=== PATIENT | female | born 1940 | race African-American/Black ===

== ENCOUNTER → 2018-11-17 | Outpatient (CLI) | payer BC, OTHER ==
--- NOTE | 2018-11-17 14:06 | 2DMMODE ---
[facility] [place] [address] 2 D/M-MODE ECHOCARDIOGRAM Name: SULEMAN SULLIVAN Room #: REG [facility]#: [id number] ������������� Admission: 11/17/18 ������������� Attend Phys: Bassem Hendrickson Discharge: ��� ������������� ��� Date of : 40 Date of Service: 11/17/18 1406 �� Report #: [id number] �������� ��������������������������������������������[id number] THIS REPORT FOR: //name// APPROVED REPORT Study performed: 11/17/2018 13:18:44 EXAM: Comprehensive 2D, Doppler, and color-flow Echocardiogram Patient Location: Out-Patient Status: routine BSA: 1.82 HR: 51 bpm BP: 180/90 mmHg Rhythm: IRREGULAR/SINUS Other Information Study Quality: Adequate Indications Syncope 2D Dimensions RVDd: 35.31 mm IVSd: 11.66 (7-11mm) LVOT Diam: 20.17 (18-24mm) LVDd: 39.28 mm PWd: 12.24 (7-11mm) LVDs: 27.09 (25-40mm) Aortic Root: 32.14 mm Volumes Left Atrial Volume (Systole) Single Plane 4CH: 63.32 mL Single Plane 2CH: 54.20 mL LA ESV Index: 34.00 mL/m2 Aortic Valve AoV Peak Renny.: 1.65 m/s AO Peak Gr.: 10.84 mmHg LVOT Max P.22 mmHg LVOT Max V: 1.03 m/s KACY Vmax: 1.99 cm2 Mitral Valve E/A Ratio: 0.9 MV Decel. Time: 280.32 ms MV E Max Renny.: 1.11 m/s [facility] [address] [place] [address] 2 D/M-MODE ECHOCARDIOGRAM Name: SULEMAN SULLIVAN [id number] ������������� Admission: 11/17/18 ������������� Attend Phys: Bassem Hendrickson Discharge: ��� ������������� ��� Date of : 40 Date of Service: 11/17/18 1406 �� Report #: [id number] �������� ��������������������������������������������[id number] MV A Renny.: 1.23 m/s MV PHT: 81.29 ms IVRT: 92.27 ms Pulmonary Valve PV Peak Renny.: 0.78 m/s PV Peak Gr.: 2.43 mmHg Pulmonary Vein P Vein S: 0.49 m/s P Vein A: 0.30 m/s P Vein D: 0.29 m/s P Vein A Dur.: 156.9 msec P Vein S/D Ratio: 1.69 Tricuspid Valve TR Peak Renny.: 2.75 m/s RAP Estimate: 5.00 mmHg TR Peak Gr.: 30.21 mmHg PA Pressure: 35.00 mmHg Left Ventricle The left ventricle is normal size. There is normal LV segmental wall motion. Mild concentric left ventricular hypertrophy. Left ventricular systolic function is normal. LVEF is 60-65%. Mild diastolic dysfunction is present (impaired relaxation pattern). Right Ventricle The right ventricle is normal size. The right ventricular systolic function is normal. Atria Left atrium is at the upper limits of normal. The right atrium size is normal. Aortic Valve Aortic valve leaflets are mildly thickened. Mild aortic regurgitation. There is no aortic valvular stenosis. Mitral Valve The mitral valve is normal in structure. Trace to mild mitral regurgitation. Tricuspid Valve The tricuspid valve is normal in structure. Moderate tricuspid regurgitation. Estimated PAP is 35-40mmHg. Pulmonic Valve The pulmonary valve is normal in structure. Trace pulmonic [facility] [address] [place] [address] 2 D/M-MODE ECHOCARDIOGRAM Name: SULEMAN SULLIVAN Room #: REG [facility].#: [id number] ������������� Admission: 11/17/18 ������������� Attend Phys: Bassem Hendrickson Discharge: ��� ������������� ��� Date of : 40 Date of Service: 11/17/18 1406 �� Report #: [id number] �������� ��������������������������������������������[id number] regurgitation. Great Vessels The aortic root is normal in size. Ascending aorta is not well visualized. IVC is normal in size and collapses >50% with inspiration. Pericardium There is no pericardial effusion. <Conclusion> The left ventricle is normal size. LVEF is 60-65%. Left atrium is at the upper limits of normal. Aortic valve leaflets are mildly thickened. Mild aortic regurgitation. The mitral valve is normal in structure. Trace to mild mitral regurgitation. The tricuspid valve is normal in structure. Moderate tricuspid regurgitation. Estimated PAP is 35-40mmHg. The pulmonary valve is normal in structure. Trace pulmonic regurgitation. Ascending aorta is not well visualized. There is no pericardial effusion. ��������������������������������������������� <ELECTRONICALLY SIGNED> ���������������������������������������� By: Ike Fierro MD ��������������������������������������������� 11/17/18 1406 1406 140 Ike Fierro MD /INF
== END ==
LOC: CV 12:58
DX: I08.2 Rheumatic disorders of both aortic and tricuspid valves (principal)